=== PATIENT | female | born 1990 | race Caucasian/White ===

== ENCOUNTER 2019-12-08 16:21 | Emergency (ER) | payer OTHER ==
[~2019-12-08] VITALS: Ht 149.9 cm; Wt 54.4 kg
[2019-12-08 16:30] VITALS: BP 118/80; Ht 149.9 cm; Wt 54.4 kg
== END 2019-12-08 17:23 | disposition home or self-care (01) ==
LOC: ED 16:21
DX: S39.012A Strain of muscle, fascia and tendon of lower back, initial encounter (principal); M25.562 Pain in left knee; W01.0XXA Fall on same level from slipping, tripping and stumbling without subsequent striking against object, initial encounter; Y93.89 Activity, other specified; Y92.89 Other specified places as the place of occurrence of the external cause; Y99.8 Other external cause status